=== PATIENT | male | born 1970 | race Caucasian/White ===

== ENCOUNTER → 2016-10-16 | Outpatient (CLI) | payer OTHER ==
--- NOTE | 2016-10-16 09:29 | US ---
EXAMINATION TYPE: US abdomen limited DATE OF EXAM: 10/16/2016 8:32 AM COMPARISON: NONE CLINICAL HISTORY: 45-year-old male with R10.84 abdominal pain. TECHNIQUE: Multiple sonographic images of the right upper quadrant are obtained. FINDINGS: Liver Length: 16.6 cm Gallbladder Wall: 0.6 cm CBD: .4 cm Right Kidney: 11.0 x 5.0 x 5.9 cm Pancreas: Obscured by bowel gas Liver: There appears to be some attenuation due to patient large body habitus. The overall appearance of the liver is relatively normal without focal lesion. Gallbladder: Collapsed completely thickened wall probably due to nondistention. No shadowing calculi or pericholecystic fluid. Evidence for sonographic Grimm's sign: no CBD: Within normal limits. Right Kidney: No hydronephrosis. IMPRESSION: Gallbladder wall thickening likely due to contracted state. No cholelithiasis or ancillary findings o f acute cholecystitis.
--- NOTE | 2016-10-16 10:53 | FL ---
EXAMINATION TYPE: FL UGI DATE OF EXAM: 10/16/2016 10:15 AM COMPARISON: NONE HISTORY: Epigastric pain TECHNIQUE: A double air contrast UGI study is performed. FINDINGS: Esophagus dilates to normal caliber has normal contour to the gastroesophageal junction. Ga stroesophageal junction has hesitancy opening, but appears to open to a normal caliber. There is inco mplete stripping of the esophageal bolus with a couple small tertiary contractions observed as well a s a secondary contraction in the horizontal drinking position. There is abundant fluid and debris within the stomach despite following the preparation for the exami nation. An obvious abnormal intraluminal abnormality is not identified. Smaller abnormalities includi ng small ulcers may not be visualized. There is marked delay of contrast entering the duodenum. Duodenum is inadequately evaluated despite m ultiple delayed images. During one of the initial fluoroscopic spot images there is a suggestion of a n ulcer within the lesser curvature of the antrum or within the duodenum bulb. This could not be repr oduced. Nearly an hour following the beginning of the examination is small amount contrast may be wit hin the second portion of the duodenum. Subsequent delayed film suggests some contrast within the pro ximal small bowel loops. Again no good visualization of the duodenum is apparent. IMPRESSIONS: 1. There appears to be a severe outlet obstruction at the pylorus. Consider pyloric channel ulcer. Ad ditional workup is recommended. 2. Some spasm or hesitancy passing to the gastroesophageal junction. 3. Mild presbyesophagus. 4. Significant retained debris and fluid within the stomach during this examination causing limitatio n. 5. Possible ulcer within the antrum of the stomach or possibly within the duodenal bulb. This is not reproduced on additional on subsequent images.
== END | disposition home or self-care (01) ==
LOC: RADUSMAIN 07:51
PROVIDERS: ATTEND Family Medicine
DX: R10.84 Generalized abdominal pain (principal)
CPT/HCPCS: 74240; 76705

== ENCOUNTER → 2017-01-23 | Outpatient (CLI) | payer OTHER ==
--- NOTE | 2017-01-23 11:10 | US ---
EXAMINATION TYPE: US bladder DATE OF EXAM: 01/23/2017 COMPARISON: NONE CLINICAL HISTORY: Urinary retention R33.9. EXAM MEASUREMENTS: Post Void Residual Volume: 27.2 mL Color Doppler performed to assess ureteral jets. Bilateral Jets seen: only left jet seen in 3 minutes of scan time Normal Post Void Residual (less than 50ml): yes, at 27.2 ml Urinary bladder larson appear smooth without thickening. IMPRESSION: Small amount of post void residual measuring 27 mm, within normal limits.
== END | disposition home or self-care (01) ==
LOC: RADUSWWP 10:03
PROVIDERS: ATTEND Family Medicine
DX: R33.9 Retention of urine, unspecified (principal)
CPT/HCPCS: 76857

== ENCOUNTER → 2017-02-18 | Outpatient (CLI) | payer OTHER ==
[2017-02-18 15:40] LABS: Blood Urea Nitrogen 15 mg/dL (9-20); Non-African American GFR(MDRD) >60 (>60 ml/min/1.73 sqM)
--- NOTE | 2017-02-18 22:01 | CT ---
EXAMINATION TYPE: CT abdomen w con DATE OF EXAM: 02/18/2017 COMPARISON: NONE HISTORY: Generalized abdominal pain x [address] DLP: 994.50 mGycm, Automated Exposure Control for Dose Reduction was Utilized. CONTRAST: CT scan of the abdomen is performed with oral and with IV Contrast, patient injected with 100 mL of O mnipaque 300. FINDINGS: LUNG BASES: No significant abnormality is appreciated. LIVER/GB: No significant abnormality is appreciated. PANCREAS: No significant abnormality is seen. SPLEEN: No significant abnormality is seen. ADRENALS: No significant abnormality is seen. KIDNEYS: No significant abnormality is seen. BOWEL: The oral contrast only reaches distal jejunal loops in the left abdomen. There is no suspiciou s small or large bowel dilatation. There is some prominence of fecal material in the right colon and to lesser degree the transverse colon. LYMPH NODES: No greater than 1cm abdominal lymph nodes are appreciated. OSSEOUS STRUCTURES: There is postsurgical change with posterior fusion hardware at L4-S1 levels bilat erally. There are bilateral laminectomy defects and spinous process resection in the lower lumbar spi ne. There is disc space narrowing L5-S1 level. Facet arthropathy in disc herniation surgery 2 spinal canal effacement or stenosis L3-L4 level on axial image 52. OTHER: There is moderate mixed plaque in the abdominal aorta extending into visualized pelvic branch vessels. IMPRESSION: Fairly moderate proximal colonic fecal stasis otherwise no significant acute finding is seen to account for patient's clinical symptoms.
== END | disposition home or self-care (01) ==
LOC: RADCTMAIN 15:11
PROVIDERS: ATTEND Family Medicine
DX: K56.41 Fecal impaction (principal)
CPT/HCPCS: 82565; 84520; 74160; 36415; Q9967

== ENCOUNTER → 2017-10-02 | Outpatient (CLI) | payer OTHER | END | disposition home or self-care (01) | LOC: LABWHC1 09:44 | PROVIDERS: ATTEND Podiatrist | DX: Z53.9 Procedure and treatment not carried out, unspecified reason (principal) ==

== ENCOUNTER → 2019-01-13 | Outpatient (CLI) | payer OTHER ==
--- NOTE | 2019-01-13 10:08 | US ---
EXAMINATION TYPE: US abdomen complete DATE OF EXAM: 01/13/2019 COMPARISON: NONE CLINICAL HISTORY: R10.84 Abd pain, R11.0 Nausea. abd pain for a few weeks, diabetic, patient states 7 -10lb weight loss per week EXAM MEASUREMENTS: Liver Length: 17.1 cm Gallbladder Wall: 0.2 cm CBD: 0.6 cm Spleen: 10.2 cm Right Kidney: 10.2 x 4.8 x 5.4 cm Left Kidney: 10.1 x 4.1 x 5.5 cm bowel gas obscures imaging, patient chewing gum and in noticeable pain during exam within epigastri c area Pancreas: not seen due to gas Liver: intercostal views only due to gas appear wnl Gallbladder: wnl Evidence for sonographic Grimm's sign: no CBD: wnl Spleen: wnl Right Kidney: wnl Left Kidney: wnl Upper IVC: wnl Abd Aorta: limited views appear wnl The liver is homogenous. The intrahepatic portion of the IVC and proximal abdominal aorta are within normal limits. There is no evidence of cholelithiasis. Common bile duct is unremarkable. The visu alized portions of the pancreas are homogenous. The spleen is unremarkable. Kidneys are symmetric a nd free of hydronephrosis. No renal lesions are seen. IMPRESSION: Unremarkable exam. No sonographic evidence of cholelithiasis nor acute cholecystitis. The patient notes epigastric pain during the examination.
== END | disposition home or self-care (01) ==
LOC: RADUSWWP 09:24
PROVIDERS: ATTEND Family Medicine
DX: R10.84 Generalized abdominal pain (principal); R11.0 Nausea
CPT/HCPCS: 76700

== ENCOUNTER → 2019-11-25 | Outpatient (CLI) | payer OTHER | LOC: LABWHC1 11:48 | PROVIDERS: ATTEND Internal Medicine Gastroenterology | DX: Z11.59 Encounter for screening for other viral diseases (principal) ==

== ENCOUNTER 2019-11-30 07:16 | Day surgery (SDC) | payer OTHER ==
[2019-11-28 09:54] VITALS: BMI 26.4
[~2019-11-30 07:16] MED LIST: LACTATED RINGERS 1,000 ML IV SCH
[2019-11-30 07:45] VITALS: RESP 16; TEMP 97.6
[2019-11-30 07:45] LABS: Glucose,Whole Blood 119 mg/dL (75-99)
[2019-11-30] MEDS ORDERED: PROPOFOL 10 MG/ML 20 ML VIAL IV ONE (07:53)
[2019-11-30] MEDS ORDERED: LIDOCAINE 1% INJ 10MG/ML (20 ML MDV) ONE (07:53)
--- NOTE | 2019-11-30 08:26 | P.PCN ---
Date of Procedure: 11/30/19 Procedure(s) Performed: BRIEF HISTORY: Patient is a 49-year-old pleasant white male scheduled for an elective colonoscopy as a part of screening for colorectal neoplasia. His father was diagnosed with colon cancer at age 62. PROCEDURE PERFORMED: Colonoscopy. PREOPERATIVE DIAGNOSIS: Screening for colon cancer/family history of colon cancer. IV sedation per Anesthesia. PROCEDURE: After informed consent was obtained, the patient, was brought into the endoscopy unit. IV sedation was administered by Anesthesia under continuous monitoring. Digital rectal examination was normal. Initially the Olympus CF-160 flexible video colonoscope was then inserted in the rectum, gradually advanced into the cecum without any difficulty. Careful examination was performed as the scope was gradually being withdrawn. Ileocecal valve and the appendiceal orifice were visualized and appeared normal. Prep was poor and several areas of the colon. Mucosa of the cecum, ascending colon, transverse colon, descending colon, sigmoid colon, and rectum appeared normal. Retroflexion was performed in the rectum and no lesions were seen. The patient tolerated the procedure well. IMPRESSION: Normal-appearing colon from rectum to cecum with no evidence of colorectal neoplasia. RECOMMENDATIONS: Findings of this examination were discussed with the patient is well as his family. He was advised to have a repeat screening colonoscopy every 5 years because of the family history of colon cancer.
[2019-11-30 08:39] VITALS: BP 122/86; PULSE 100
== END 2019-11-30 08:50 | disposition home or self-care (01) ==
LOC: ORWHC2ENDO 07:16
PROVIDERS: ATTEND Internal Medicine Gastroenterology
DX: Z12.11 Encounter for screening for malignant neoplasm of colon (principal); Z80.0 Family history of malignant neoplasm of digestive organs; Z87.891 Personal history of nicotine dependence; E78.5 Hyperlipidemia, unspecified; E11.9 Type 2 diabetes mellitus without complications; F41.9 Anxiety disorder, unspecified; Z79.84 Long term (current) use of oral hypoglycemic drugs; Z79.82 Long term (current) use of aspirin; Z79.899 Other long term (current) drug therapy
CPT/HCPCS: J2001; J2704; G0105